=== PATIENT | male | born 1995 | race Caucasian/White ===

== ENCOUNTER 2023-04-22 16:16 | Emergency (ER) | payer OTHER ==
[2023-04-22 16:47] LABS: BASOPHILS ABSOLUTE AUTO 0.1 K/uL (0.0-0.1); BASOPHILS PERCENT AUTO 0.8 % (0.0-1.5); EOSINOPHILS ABSOLUTE AUTO 0.1 K/uL (0.0-0.7); EOSINOPHILS PERCENT AUTO 1.6 % (0.0-7.0); HEMATOCRIT 40.4 % (38.0-50.0); HEMOGLOBIN 13.8 g/dL (13.0-17.0); LYMPHOCYTES ABSOLUTE AUTO 2.5 K/uL (0.6-2.4); LYMPHOCYTES PERCENT AUTO 32.5 % (16.0-40.0); MEAN CORPUSCULAR HEMOGLOBIN 30.7 pg (27.0-32.0); MEAN CORPUSCULAR HGB CONC 34.2 g/dL (31.0-37.0); MONOCYTES ABSOLUTE AUTO 0.8 K/uL (0.0-0.8); MONOCYTES PERCENT AUTO 11.1 % (0.0-15.0); NEUTROPHILS ABSOLUTE AUTO 4.1 K/uL (1.4-5.7); NRBC ABSOLUTE 0 K/uL; PLATELET COUNT,PLT 199 K/uL (150-400); RED BLOOD CELL COUNT 4.49 M/uL (4.50-5.90); WHITE BLOOD CELL COUNT,WBC 7.55 K/uL (4.0-11.0)
[2023-04-22 17:08] LABS: A/G RATIO 1.3 (0.9-1.6); ALBUMIN 3.9 g/dL (3.4-5.0); BILIRUBIN TOTAL 0.2 mg/dL (0.2-1.0); CALCIUM 8.3 mg/dL (8.5-10.1); CARBON DIOXIDE,CO2 26.9 mmol/L (21.0-32.0); CREATININE 1.2 mg/dL (0.8-1.3); EST CRCL DRUG DOSING (CG) 90.25 mL/min; POTASSIUM,K 4.2 mmol/L (3.5-5.1); PROTEIN TOTAL,TP 6.9 g/dL (6.4-8.2)
== END 2023-04-22 18:11 | disposition home or self-care (01) ==
LOC: MW.ED 16:16
DX: T75.4XXA Electrocution, initial encounter (principal); R55 Syncope and collapse; W86.8XXA Exposure to other electric current, initial encounter
CPT/HCPCS: 36415; 70450; 70450-26; 80053; 83735; 85025; 93005; 93010; 99282; 99285

== ENCOUNTER 2024-02-22 11:54 | Emergency (ER) | payer OTHER ==
[2024-02-22] MEDS: Lidocaine 1% 5 ML VIAL INJECT ONE (12:36)
[2024-02-22] MEDS: Lidocaine 1% with EPINEPHrine 1:100,000 50 ML MDV SUBCUT STA (12:44)
[2024-02-22] MEDS: Lidocaine 1% with EPINEPHrine 1:100,000 50 ML MDV INFILT ONE (12:44)
[2024-02-22 13:21] LABS: A/G RATIO 1.1 (0.9-1.6); ALBUMIN 4.1 g/dL (3.4-5.0); BILIRUBIN TOTAL 0.3 mg/dL (0.2-1.0); CALCIUM 9.3 mg/dL (8.5-10.1); CARBON DIOXIDE,CO2 23.7 mmol/L (21.0-32.0); CREATININE 1.6 mg/dL (0.8-1.3); EST CRCL DRUG DOSING (CG) 67.09 mL/min; POTASSIUM,K 3.6 mmol/L (3.5-5.1); PROTEIN TOTAL,TP 7.8 g/dL (6.4-8.2)
[2024-02-22 17:07] LABS: BASOPHILS ABSOLUTE AUTO 0.06 K/uL (0.00-0.20); BASOPHILS PERCENT AUTO 0.7 % (0.0-1.0); EOSINOPHILS ABSOLUTE AUTO 0.13 K/uL (0.00-0.45); EOSINOPHILS PERCENT AUTO 1.5 % (0.0-6.0); HEMATOCRIT 43.9 % (42.0-52.0); HEMOGLOBIN 15.2 g/dL (14.0-18.0); IMMATURE GRAN ABSOLUTE AUTO 0.05 K/uL (0.00-0.05); IMMATURE GRAN PERCENT AUTO 0.6 % (0.0-0.4); LYMPHOCYTES ABSOLUTE AUTO 2.72 K/uL (1.00-4.80); LYMPHOCYTES PERCENT AUTO 31.9 % (24.0-44.0); MEAN CORPUSCULAR HEMOGLOBIN 29.6 pg (28.0-32.0); MEAN CORPUSCULAR HGB CONC 34.6 g/dL (32.0-36.0); MEAN CORPUSCULAR VOLUME 85.4 fL (83.0-99.0); MEAN PLATELET VOLUME 11.2 fL (9.4-12.4); MONOCYTES ABSOLUTE AUTO 0.56 K/uL (0.00-0.80); MONOCYTES PERCENT AUTO 6.6 % (0.0-8.0); NEUTROPHILS ABSOLUTE AUTO 5.01 K/uL (1.80-7.70); NEUTROPHILS PERCENT AUTO 58.7 % (41.0-71.0); PLATELET COUNT,PLT 207 K/uL (150-400); RED BLOOD CELL COUNT 5.14 M/uL (4.52-5.90); WHITE BLOOD CELL COUNT,WBC 8.53 K/uL (3.9-11.3)
== END 2024-02-22 13:26 | disposition home or self-care (01) ==
LOC: MW.ED 11:54
DX: S51.012A Laceration without foreign body of left elbow, initial encounter (principal); S60.512A Abrasion of left hand, initial encounter; S60.511A Abrasion of right hand, initial encounter; Z75.8 Other problems related to medical facilities and other health care; Y04.0XXA Assault by unarmed brawl or fight, initial encounter
CPT/HCPCS: 12002; 36415; 80053; 80074; 85025; 87389; 99283; J3490

== ENCOUNTER 2024-10-11 13:48 | Emergency (ER) | payer OTHER | END 2024-10-11 15:35 | disposition home or self-care (01) | LOC: MW.ED 13:48 | DX: S83.91XA Sprain of unspecified site of right knee, initial encounter (principal); Z79.899 Other long term (current) drug therapy; Z75.8 Other problems related to medical facilities and other health care; W22.8XXA Striking against or struck by other objects, initial encounter | CPT/HCPCS: 73562-26-RT; 73562-RT; 99283 ==

== ENCOUNTER 2024-11-28 07:54 | Day surgery (SDC) | payer OTHER ==
[~2024-11-28 07:54] MED LIST: Dexamethasone 4 MG/ML 5 ML MDV ONE; Lidocaine 1% 5 ML VIAL ONE; Midazolam 1 MG/ML 2 ML SDV ONE; Ondansetron 4 MG/2 ML SDV ONE; Propofol 200 MG/20 ML SDV ONE; fentaNYL 100 MCG/2 ML SDV ONE
[2024-11-28] MEDS ORDERED: ceFAZolin 2 GM in Sodium Chloride 0.9% 50 ML IV ONE (08:00)
[2024-11-28] MEDS ORDERED: Sodium Chloride 0.9% 20 ML ONE (08:08)
[2024-11-28] MEDS ORDERED: dexmedeTOMIDine HCl 200 MCG/2 ML SDV ONE (08:08)
[2024-11-28] MEDS ORDERED: Propofol 200 MG/20 ML SDV ONE (08:09)
[2024-11-28] MEDS ORDERED: Ropivacaine 0.5% 5 MG/ML 30 ML SDV ONE (08:11)
[2024-11-28] MEDS ORDERED: Lidocaine 1% 5 ML VIAL ONE (08:13)
[2024-11-28] MEDS: Lactated Ringers 1,000 ML IV SCH (08:23)
[2024-11-28] MEDS ORDERED: ceFAZolin 2 GM Vial ONE (08:47)
[2024-11-28] MEDS ORDERED: Ketorolac 30 MG/ML SDV ONE (10:23)
[2024-11-28] MEDS ORDERED: fentaNYL 100 MCG/2 ML SDV ONE (10:29)
[2024-11-28] MEDS ORDERED: HYDROmorphone 1 MG/ML Syringe ONE (11:36)
[2024-11-28] MEDS ORDERED: Ondansetron 4 MG/2 ML SDV IVPUSH PRN (12:09)
[2024-11-28] MEDS ORDERED: HYDROmorphone 1 MG/ML Syringe IVPUSH PRN (12:09)
[2024-11-28] MEDS ORDERED: Metoclopramide 10 MG/2 ML SDV IVPUSH PRN (12:09)
[2024-11-28] MEDS ORDERED: Phenylephrine HCl In 0.9% NaCl 1 MG/10 ML Syringe IVPUSH PRN (12:09)
[2024-11-28] MEDS ORDERED: Naloxone 0.4 MG/ML SDV IVPUSH PRN (12:09)
[2024-11-28] MEDS ORDERED: fentaNYL 50 MCG/ML SDV IVPUSH PRN (12:09)
[2024-11-28] MEDS ORDERED: Albuterol 0.083% 2.5 MG/3 ML Neb Soln NEB PRN (12:09)
[2024-11-28] MEDS ORDERED: Morphine 2 MG/ML SYRINGE IVPUSH PRN (12:09)
[2024-11-28] MEDS: Acetaminophen/HYDROcodone 325-5 MG Tab PO ONE (12:35)
== END 2024-11-28 13:10 | disposition home or self-care (01) ==
LOC: MW.SDS 07:54
PROVIDERS: ATTEND Orthopaedic Surgery
DX: S83.511A Sprain of anterior cruciate ligament of right knee, initial encounter (principal); F41.8 Other specified anxiety disorders; Z87.891 Personal history of nicotine dependence
CPT/HCPCS: 29888; 64447; A9270; J0131; J0690; J1100; J1171; J1885; J2250; J2704; J2795; J3010; J7120; 01400; 64450; J2405; J3490